=== PATIENT | female | born 1995 | race Caucasian/White ===

== ENCOUNTER 2017-09-08 08:21 | Emergency (ER) | payer OTHER ==
[2017-09-08 08:29] VITALS: BP 104/64
--- NOTE | 2017-09-08 08:39 | UC ---
Complaint Female HPI - HPI Summary HPI Summary: pain with urination for the past few day. did take azo yesterday with little relief. - History Of Current Complaint Chief Complaint: UCGU Stated Complaint: UTI Hx Obtained From: Patient Hx Last Menstrual Period: 04/09/16 ?: No Onset/Duration: Sudden Onset, Lasting Days Timing: Constant Severity Initially: Moderate Severity Currently: Severe Pain Intensity: 8 Character: Burning Aggravating Factor(s): Urination Associated Signs And Symptoms: Positive: Negative - Allergies/Home Medications Allergies/Adverse Reactions: Allergies Allergy/AdvReac Type Severity Reaction Status Date / Time sulfamethoxazole Allergy Rash Verified 09/08/17 08:29 [From Bactrim] trimethoprim [From Bactrim] Allergy Rash Verified 09/08/17 08:29 Home Medications: Home Medications Cranberry Fruit Concentrate [Azo Cranberry Gummies Uri] 500 mg PO 09/08/17 [ History] PMH/Surg Hx/FS Hx/Imm Hx Previously Healthy: Yes - Surgical History Surgical History: None - Family History Known Family History: Positive: None Negative: Cardiac Disease Family History: no cardio vascular issues in family lineage - Social History Alcohol Use: Occasionally Substance Use Type: None Smoking Status (MU): Never Smoked Tobacco Review of Systems Constitutional: Negative Skin: Negative Eyes: Negative ENT: Negative Respiratory: Negative Cardiovascular: Negative Gastrointestinal: Negative Genitourinary: Dysuria, Frequency, Urgency Motor: Negative Neurovascular: Negative Musculoskeletal: Negative Neurological: Negative Psychological: Negative Is Patient Immunocompromised?: No All Other Systems Reviewed And Are Negative: Yes Physical Exam Triage Information Reviewed: Yes Appearance: Well-Appearing, Well-Nourished, Pain Distress Vital Signs: Initial Vital Signs Temp 97.2 F 09/08/17 08:24 Pulse 66 09/08/17 08:24 Resp 18 09/08/17 08:24 BP 104/64 09/08/17 08:24 Pulse Ox 100 09/08/17 08:24 Vital Signs Reviewed: Yes Eye Exam: Normal ENT Exam: Normal Dental Exam: Normal Neck exam: Normal Neck: Positive: Supple, Nontender, No Lymphadenopathy Respiratory Exam: Normal Respiratory: Positive: Chest non-tender, Lungs clear, Normal breath sounds Cardiovascular Exam: Normal Cardiovascular: Positive: RRR, No Murmur, Pulses Normal Abdominal Exam: Normal Bowel Sounds: Positive: Present Musculoskeletal Exam: Normal Neurological Exam: Normal Psychological Exam: Normal Skin Exam: Normal Complaint Female Dx - Course Course Of Treatment: hx obtained, exam performed ,meds reviewed, UA - Differential Dx/Diagnosis Differential Diagnosis/HQI/PQRI: Ureteral Stone, Urinary Tract Infection Provider Diagnoses: UTI Discharge - Sign-Out/Discharge Documenting (check all that apply): Discharge - Discharge Plan Condition: Stable Disposition: HOME Prescriptions: Nitrofurantoin Macrocrystals* [Macrodantin*] 100 mg PO DAILY #14 cap Patient Education Materials: Urinary Tract Infection in Women (ED) Referrals: Kishore Ramirez [Primary Care Provider] - Additional Instructions: 1. Take the medication as prescibed. 2. Increase fluid intake 3. You can continue with azo for the next 2 days. follow up if symptoms persist after 48 hours of treatment, or you develope severe back pain or fever. - Billing Disposition and Condition Condition: STABLE Disposition: HOME
== END 2017-09-08 08:54 | disposition home or self-care (01) ==
LOC: UCEAST 08:21
DX: N39.0 Urinary tract infection, site not specified (principal); B95.7 Other staphylococcus as the cause of diseases classified elsewhere; Z88.2 Allergy status to sulfonamides
CPT/HCPCS: 81003; 87077; 87086; 87186; 99212; G0463

== ENCOUNTER → 2018-03-24 16:59 | Emergency (ER) | payer OTHER ==
[~2018-03-24 16:59] MED LIST: Ketorolac INJ* 30 MG/ML 1 ML VIAL IV PUSH ONE; NS 0.9% 1000 ML* 1,000 ML IV ONE; Ondansetron INJ* 2 MG/ML VIAL IV ONE; cefTRIAXone(*) 1 GM in NS 0.9% 50 ML* 50 ML IVPB ONE
--- NOTE | 2018-03-24 17:32 | ED ---
GI/ HPI - HPI Summary HPI Summary: 23-year-old female presents with back pain for the last couple hours. She admits to dysuria. She denies any hematuria. She states that she took a dose of azo and it seemed to help. She has history of UTIs ago when she was placed on macrobid. She denies any fevers. She notes nausea vomiting. No history of kidney stones. No vaginal discharge. She states that the pain is on the right side of her abdomen. No previous belly surgeries. fam hx of kidney stones. - History of Current Complaint Chief Complaint: EDFlankPain Time Seen by Provider: 03/24/18 17:02 Stated Complaint: BACK PAIN Hx Last Menstrual Period: 04/09/16 Pain Intensity: 6 - Allergy/Home Medications Allergies/Adverse Reactions: Allergies Allergy/AdvReac Type Severity Reaction Status Date / Time sulfamethoxazole Allergy Rash Verified 03/24/18 17:20 [From Bactrim] trimethoprim [From Bactrim] Allergy Rash Verified 03/24/18 17:20 PMH/Surg Hx/FS Hx/Imm Hx Endocrine/Hematology History: Denies: Hx Diabetes, Hx Thyroid Disease Cardiovascular History: Denies: Hx Hypertension Respiratory History: Denies: Hx Asthma, Hx Chronic Obstructive Pulmonary Disease (COPD) GI History: Denies: Hx Ulcer Infectious Disease History: No Infectious Disease History: Denies: Hx Clostridium Difficile, Hx Hepatitis, Hx Human Immunodeficiency Virus (HIV), Hx of Known/Suspected MRSA, Hx Shingles, Hx Tuberculosis, Traveled Outside the [place] in Last 30 Days - Family History Known Family History: Positive: None Negative: Cardiac Disease Family History: no cardio vascular issues in family lineage - Social History Alcohol Use: Occasionally Substance Use Type: Reports: None Hx Tobacco Use: No Smoking Status (MU): Never Smoked Tobacco Review of Systems Negative: Fever Negative: Chest Pain Negative: Shortness Of Breath Positive: Abdominal Pain, Vomiting, Nausea. Negative: Diarrhea Positive: dysuria, flank pain All Other Systems Reviewed And Are Negative: Yes Physical Exam Triage Information Reviewed: Yes Vital Signs On Initial Exam: Initial Vitals Temp Pulse Resp BP Pulse Ox 98.6 F 79 22 151/88 79 03/24/18 17:15 03/24/18 17:15 03/24/18 17:15 03/24/18 17:15 03/24/18 17:15 Vital Signs Reviewed: Yes Appearance: Positive: Well-Appearing Skin: Positive: Warm, Dry Head/Face: Positive: Normal Head/Face Inspection Eyes: Positive: Normal, EOMI, ANITA, Conjunctiva Clear ENT: Positive: Pharynx normal Respiratory/Lung Sounds: Positive: Clear to Auscultation, Breath Sounds Present Cardiovascular: Positive: Normal, RRR Abdomen Description: Positive: Soft, CVA Tenderness (R), Other: - right side abd pain Bowel Sounds: Positive: Present Musculoskeletal: Positive: Normal Neurological: Positive: Normal Psychiatric: Positive: Normal Diagnostics - Vital Signs Vital Signs Temp Pulse Resp BP Pulse Ox 03/24/18 17:15 98.6 F 79 22 151/88 79 - Laboratory Result Diagrams: 03/24/18 17:30 03/24/18 17:30 Lab Statement: Any lab studies that have been ordered have been reviewed, and results considered in the medical decision making process. - Ultrasound No standard instances Ultrasound Interpretation: Positive (See Comments) - IMPRESSION: 1. Mild right hydronephrosis. 2. 1 cm echogenic focus noted in right kidney which could represent a non-shadowing calculus or vascular structure. Ultrasound Interpretation Completed By: Radiologist JOSE Course/Dx - Course Course Of Treatment: 23-year-old female presents with back pain for the last couple hours. She admits to dysuria. She denies any hematuria. She states that she took a dose of azo and it seemed to help. She has history of UTIs ago when she was placed on macrobid. She denies any fevers. She notes nausea vomiting. No history of kidney stones. No vaginal discharge. She states that the pain is on the right side of her abdomen. No previous belly surgeries. on exam CVA tenderness right and tenderness right side abd. labs wbc 11.7. electryoltes normal. crp normal. urine pos bacteria and nitrates so will treat as uti with cipro. u/s show possible renal stone and hydro. discussed can do CT or give pain medication and follow up with urology. patient wants to just manage at home and if cant can return. told to take antibiotics for uti. patient understand and agrees with londono. - Diagnoses Differential Diagnoses - Female: Pyelonephritis, Urinary Tract Infection, Ureteral Calculi Provider Diagnoses: UTI (urinary tract infection), Flank pain Discharge - Sign-Out/Discharge Documenting (check all that apply): Patient Departure - Discharge Plan Condition: Good Disposition: HOME Prescriptions: Ciprofloxacin TAB* [Cipro 500 MG TAB*] 500 mg PO BID #14 tab oxyCODONE/Acetamin 5/325 MG* [Percocet 5/325 TAB*] 1 tab PO Q6H PRN #12 tab MDD 4 PRN Reason: Pain Patient Education Materials: Kidney Infection (ED) Referrals: Amanda ARCHULETA,Kishore Flanagan [Primary Care Provider] - Aaron Suarez MD [Medical Doctor] - Additional Instructions: Take cipro twice a day for 7days take ibuprofen every 6 hours as needed for pain, use percocet every 6 hours as needed for break through pain Drink plenty of fluids Follow up with urology for no improvement in two days as may have kidney stone Return to ED if develop any new or worsening symptoms - Billing Disposition and Condition Condition: GOOD Disposition: Home
[2018-03-24 17:36] LABS: ABS Basophils 0.1 10^3/ul (0-0.2); ABS Eosinophils 0.3 10^3/ul (0-0.6); ABS Lymphocytes 1.5 10^3/ul (1.0-4.8); ABS Monocytes 0.7 10^3/ul (0-0.8); ABS Neutrophils 9.1 10^3/ul (1.5-7.7); ABS Nucleated RBC 0 10^3/ul; Eosinophil % 2.3 % (0-6); Hematocrit 38 % (35-47); Lymphocyte % 12.9 % (25-47); Mean Corpuscular HGB Conc 34 g/dl (31-36); Mean Corpuscular Hemoglobin 31 pg (27-31); Mean Corpuscular Volume 92 fL (80-97); Mean Platelet Volume 7.3 um3 (7.4-10.4); Nucleated Red Blood Cells % 0; Platelet Count 269 10^3/ul (150-450); Red Blood Count 4.15 10^6/ul (4.00-5.40); Red Cell Distribution Width 13 % (10.5-15); White Blood Count 11.7 10^3/ul (3.5-10.8)
[2018-03-24 18:07] LABS: Urine Appearance Clear; Urine Blood Negative (Negative); Urine Color Amber; Urine Ketones Negative (Negative); Urine Protein Negative (Negative); Urine Red Blood Cell Absent (Absent); Urine Specific Gravity 1.013 (1.010-1.030); Urine Urobilinogen Positive (Negative); Urine White Blood Cell Trace(0-5/hpf) (Absent)
--- NOTE | 2018-03-24 19:54 | RAD ---
EXAM: US Retroperitoneal Limited, Kidneys. EXAM DATE/TIME: 03/24/2018 6:38 PM CLINICAL HISTORY: 23 years old, female; Pain; Abdominal pain; Flank; Right; Additional info: Right flank pain TECHNIQUE: Real-time ultrasound of the retroperitoneum with image documentation. Examination was focused on the kidneys. COMPARISON: No relevant prior studies available. FINDINGS: Right kidney: The right kidney measures 10.9 x 4.4 x 5.0 cm and demonstrates mild hydronephrosis. A the linear non-shadowing 1 cm echogenic focus is noted in the interpolar region of the right kidney. It is not certain whether this is within the collecting system or may represent a vascular structure.. Left kidney: The left kidney measures 11.7 x 7.0 x 5.7 cm. No hydro-or shadowing stones on the left. Urinary bladder: Bilateral ureteral jets were visualized, left stronger than right. IMPRESSION: 1. Mild right hydronephrosis. 2. 1 cm echogenic focus noted in right kidney which could represent a non-shadowing calculus or vascular structure. To contact [facility] with a general question: Operations Center - [phone] For direct physician to physician contact: Physician Hotline - [phone] [facility] ([facility] Facility ID #[id number])
[2018-03-24 20:19] VITALS: BP 122/81
== END | disposition home or self-care (01) ==
LOC: ED 16:59
DX: N39.0 Urinary tract infection, site not specified (principal); R10.9 Unspecified abdominal pain
CPT/HCPCS: 36415; 76775; 80053; 81003; 81015; 83690; 84702; 85025; 86140; 87086; 96361; 96374; 96375; 99283; J0696; J1885; J2405

== ENCOUNTER → 2018-03-28 14:50 | Day surgery (SDC) | payer OTHER ==
--- NOTE | 2018-03-27 21:13 | HP ---
CC: EDWIN Carroll * ADMITTING HISTORY AND PHYSICAL: DATE OF ADMISSION: 03/28/18 ADMITTING DIAGNOSES: 1. Calculus, right ureter. 2. Right hydronephrosis. PLANNED PROCEDURE: Right ureteroscopy, possible laser and stent insertion. SURGEON: Dr. Suarez. HISTORY OF PRESENT ILLNESS: Farida Lu is a 23-year-old lady, who has had right flank pain, nausea and vomiting episodically for the last several days. She had initially been in the emergency room a few days ago, at which time an ultrasound had revealed right hydronephrosis. She had been placed on Cipro and continues to have episodic right flank pain. An ultrasound in my office revealed a 4.3 mm calculus in the right distal ureter with right hydronephrosis and hydroureter and absent right ureteral jet suggestive a complete obstruction. PAST MEDICAL HISTORY: Unremarkable other than a history of frequent urinary tract infection. PAST SURGICAL HISTORY: Unremarkable. CURRENT MEDICATIONS: On admission: 1. Cipro 500 mg twice a day. 2. Oxycodone p.r.n. ALLERGIES: BACTRIM (rash). FAMILY HISTORY: Her father also has had a history of kidney stones. REVIEW OF SYSTEMS: She is otherwise in excellent health. There is no history of diabetes mellitus or any other major systemic illness. PHYSICAL EXAMINATION GENERAL: Reveals a pleasant, healthy-appearing, uncomfortable lady. VITAL SIGNS: Blood pressure is 120/70, pulse 74 per minute and regular, temperature 97, oxygen saturation 98% on room air. LUNGS: Clear bilaterally. CARDIOVASCULAR: Regular rate and rhythm. S1, S2. ABDOMEN: Soft with right flank tenderness. IMPRESSION: A 23-year-old lady with an obstructing right distal ureteral calculus. PLAN: Planned procedure is right ureteroscopy, possible laser, and stent insertion. I did discuss with her the alternative of trying to continue conservative management, but because of the degree of pain and because of the evidence of complete obstruction, she opted for and is being brought in for right ureteroscopy. [id number]/CPS #: [id number] MTDD
[~2018-03-28 14:50] MED LIST changes: +Buffered Lidocaine 0.9% SYRIN* 5 ML/SYR SYRINGE INTRADERM ONE; +Dexamethasone IV* 4 MG/ML 1 ML (4 MG) ONE; +DiMENhydriNATE IV* 50 MG/ML VIAL IV PUSH PRN; +Gentamicin ADULT (*) 160 MG in NS 0.9% 100 ML* 100 ML IVPB ONE; +Iohexol 180 (CONTRAST) 10 ML SDV IV ONE; -Ketorolac INJ* 30 MG/ML 1 ML VIAL IV PUSH ONE; +Midazolam* 1 MG/ML 5 ML VIAL (5 MG) ONE; -NS 0.9% 1000 ML* 1,000 ML IV ONE; +Naloxone* 0.4 MG/ML 1 ML VIAL IV PRN; -Ondansetron INJ* 2 MG/ML VIAL IV ONE; +Ondansetron INJ* 2 MG/ML VIAL IV PRN; +Ondansetron INJ* 2 MG/ML VIAL ONE; +Propofol* 10 MG/ML 20 ML BTL IV PUSH ONE; -cefTRIAXone(*) 1 GM in NS 0.9% 50 ML* 50 ML IVPB ONE; +cefTRIAXone(*) 2 GM ADDV.VIAL IVPB ONE; +cefTRIAXone(*) 2 GM in NS 0.9% 100 ML* 100 ML IVPB ONE; +fentaNYL* 50 MCG/ML 2 ML VIAL (100 MCG VIAL) ONE; +oxyCODONE/Acetamin 5/325 MG* TAB ONE; +oxyCODONE/Acetamin 5/325 MG* TAB PO PRN
[2018-03-28] MEDS: fentaNYL* 50 MCG/ML 2 ML VIAL (100 MCG VIAL) IV PRN ×3 (19:10→20:05)
[2018-03-28 20:10] VITALS: BP 129/89
--- NOTE | 2018-03-29 09:31 | OP ---
DATE OF OPERATION: 03/28/18 - [facility] DATE OF : [birth year] SURGEON: Aaron Suarez MD ANESTHESIOLOGIST: Dr. Mercedes. ANESTHESIA: General. PRE-OP DIAGNOSES: 1. Right hydronephrosis. 2. Calculus, right ureter. POST-OP DIAGNOSES: 1. Right hydronephrosis. 2. Calculus, right ureter. 3. 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 OPERATIVE PROCEDURE: Cystoscopy, right retrograde pyelogram, right ureteroscopy , laser lithotripsy of right ureteral calculus and removal of calculus fragments and right stent insertion. COMPLICATIONS: None. STENT USED: 7-Bhutanese stent right ureter. INDICATIONS: Farida Lu is a 23-year-old lady who has had persistent right flank pain secondary to a calculus in the right distal ureter. OPERATIVE FINDINGS: 1. Significant edema and inflammatory response at site of calculus impacted in distal right ureter with an area of stricture noted just below the site of impaction. 2. Right hydronephrosis and proximal hydroureter. POSTOPERATIVE CONDITION: Stable. DESCRIPTION OF PROCEDURE: After induction of general anesthesia, the patient was placed in dorsal lithotomy position. Sequential compression devices were in place and functioning. Initial cystoscopy revealed edema surrounding the right ureterovesical junction with an otherwise normal appearing bladder. A guidewire was introduced into the right ureter. After some initial resistance a few centimeters above the ureterovesical junction, the wire was advanced proximally. Retrograde pyelogram revealed right hydronephrosis with a dilated tortuous right proximal ureter. A 6-Bhutanese semirigid ureteroscope was introduced and advanced under direct vision about 2 cm above the ureterovesical junction. There was a stricture noted and just above the stricture, a calculus was noted to be impacted with surrounding edema and inflammation. The ureteroscope was carefully advanced through the strictured area and the calculus was dislodged. Next, using a 550 micron holmium laser, this was fragmented and all of the sizeable fragments were removed. A 7-Bhutanese stent was introduced and positioned under fluoroscopy with good proximal and distal positioning obtained. The patient tolerated the procedure satisfactorily and was transferred back to the recovery area in stable condition. [id number]/CPS #: [id number] MTDD
== END | disposition home or self-care (01) ==
LOC: OR 14:50
PROVIDERS: ATTEND Urology
DX: N20.1 Calculus of ureter (principal); N13.5 Crossing vessel and stricture of ureter without hydronephrosis; N13.30 Unspecified hydronephrosis; Z88.8 Allergy status to other drugs, medicaments and biological substances
CPT/HCPCS: 81025; 82365; A9270-GY; C1876; J0696; J1100; J1580; J2250; J2405; J2704; J3010